=== PATIENT | female | born 1965 | race Caucasian/White ===

== ENCOUNTER 2016-10-24 13:31 | Emergency (ER) | payer MEDICAID ==
[~2016-10-24] VITALS: Ht 160 cm; Wt 113.4 kg
[2016-10-24] MEDS ORDERED: CITALOPRAM HBR40 MG PO (13:57)
[2016-10-24] MEDS ORDERED: NORTRIPTYLINE H50 MG PO (13:57)
[2016-10-24] MEDS ORDERED: OMEPRAZOLE20 M1 PO (13:58)
[2016-10-24] MEDS ORDERED: GABAPENTIN100 MG PO (13:58)
[2016-10-24] MEDS ORDERED: CORTIZONE-10 1%28 GM TOP (15:31)
[2016-10-24] MEDS ORDERED: PYRIDIUM200 MG PO (15:31)
[2016-10-24] MEDS ORDERED: LOTRISONE CREAM15 GM TOP (15:31)
== END 2016-10-24 15:57 | disposition home or self-care (01) ==
LOC: ED 13:31
PROC: 4A0D7LZ Measurement of Urinary Volume, Via Natural or Artificial Opening (ICD-10-PCS; principal; 2016-10-24)
DX: B37.2 Candidiasis of skin and nail (principal); R30.0 Dysuria; Z90.49 Acquired absence of other specified parts of digestive tract; Z90.710 Acquired absence of both cervix and uterus; Z88.2 Allergy status to sulfonamides; Z79.899 Other long term (current) drug therapy; Z91.030 Bee allergy status; Z91.018 Allergy to other foods
CPT/HCPCS: 51798; 81001; 99284

== ENCOUNTER 2024-04-16 12:27 | Emergency (ER) | payer MEDICAID ==
[~2024-04-16] VITALS: Ht 160 cm; Wt 137.9 kg
[~2024-04-16 12:27] MED LIST: CITALOPRAM HBR40 MG PO; CORTIZONE-10 1%28 GM TOP; GABAPENTIN100 MG PO; LOTRISONE CREAM15 GM TOP; NORTRIPTYLINE H50 MG PO; OMEPRAZOLE20 M1 PO; PYRIDIUM200 MG PO
--- OUTSIDE RECORDS SUMMARY | 2024-04-16 12:29 | XMS ---
PreManage Notification: MIYA VILLASENOR Security Medicare Sales Executive Events No recent Security Events currently on file CRITERIA MET - 6 ED Visits in 6 Months - [facility] - 2 Visits in 30 Days - [facility] - 3 Facilities in 90 Days CARE PROVIDERS DOMINICK Nurse Practitioner: Family Kenn DUNBAR PHONE: [phone] [facility] Current PHONE: Unknown JES SHORT Nurse Practitioner Current PHONE: [phone] Kari Armenta Medicare Sales Executive/E Commerce Solution Architect Current PHONE: [phone] Cha has no Care Guidelines for this patient. Chele VISIT COUNT (12 MO.) 7 Kofi Varela 2 Aayushacy Prien 1 MIKE Munoz TOTAL 10 NOTE: Visits indicate total known visits. ED/UCC VISIT TRACKING (12 MO.) 04/16/2024 12:27 [facility] [place] TYPE: Emergency COMPLAINT: - LEG SWELLING 03/23/2024 18:33 [place] [facility] TYPE: Emergency DIAGNOSES: - Chest pain, unspecified - Shortness of breath - CP 02/29/2024 22:03 [place] [facility] TYPE: Emergency DIAGNOSES: - Chest pain, unspecified - Other chest pain - Other specified postprocedural states - CP 01/30/2024 22:[facility] DIAGNOSES: - Palpitations - Chest Pain [facility]06[facility]2024 20[facility] DIAGNOSES: - Bradycardia, unspecified - Chest pain, unspecified - Chest Pain 12/23/2023 18:47 Kofi Maeh TYPE: Emergency DIAGNOSES: - Chest pain, unspecified - Fibromyalgia - Gastro-esophageal reflux disease without esophagitis - chest pressure 09/26/2023 20:[address] [facility] TYPE: Emergency DIAGNOSES: - Chondrocostal junction syndrome [Tietze] - Chest Pain 09/15/2023 21:[address] [facility] TYPE: Emergency DIAGNOSES: - Cellulitis of left lower limb - Abscess 08/01/2023 22:04 Kofi Maeh TYPE: Emergency DIAGNOSES: - Other chest pain - Chest Pain 05/03/2023 17:[address] [facility] TYPE: Emergency DIAGNOSES: - Chest pain, unspecified - Chest Pain - chest pains INPATIENT VISIT TRACKING (12 MO.) 01/07/2024 05:02 [facility] TYPE: Cardiology DIAGNOSES: - Bradycardia, unspecified - Fibromyalgia - Paroxysmal atrial fibrillation - Personal history of Methicillin resistant Staphylococcus aureus infection - Personal history of transient ischemic attack (TIA), and cerebral infarction without residual deficits - Presence of other cardiac implants and grafts - Symptomatic bradycardia [id number]
[2024-04-16] MEDS ORDERED: TRAZODONE HCL50 MG PO (12:47)
[2024-04-16] MEDS ORDERED: VAZALORE81 MG PO (12:47)
[2024-04-16] MEDS ORDERED: ELIQUIS2.5 MG PO (12:47)
[2024-04-16 13:32] LABS: BASOPHILS 0.6 % (0-2); EOSINOPHILS 1.1 % (0-6); HEMATOCRIT 40.9 % (35.0-50.0); HEMOGLOBIN 13.9 g/dL (12.0-18.0); LYMPHOCYTES 20.1 % (24-44); MCH 29.3 (27-36); MCHC 34.1 g/dl (30-36); MCV 86.1 fl (81-99); MONOCYTES 6.5 % (0-12); NEUTROPHILS 71.7 % (39-80); PLATELET COUNT 271 K/uL (140-440); RBC 4.75 M/ul (4.3-5.7); RDW 14.1 (10.5-15.0)
[2024-04-16 13:59] LABS: ALBUMIN 3.5 g/dL (3.4-5.0); ALBUMIN/GLOBULIN RATIO 0.88 (1.1-2.4); ANION GAP 13.2 (7-21); BILIRUBIN, TOTAL 0.6 ng/dL (0.2-1.0); BUN/CREATININE RATIO 16.86 (6.0-28.6); CALCIUM 9.6 mg/dL (8.5-10.1); CREATININE, SERUM 0.83 mg/dL (0.55-1.02); POTASSIUM 4.2 mmol/L (3.5-5.1); PROTEIN, TOTAL 7.5 g/dL (6.4-8.2)
[2024-04-16] MEDS ORDERED: LASIX20 MG PO (14:58)
[2024-04-16] MEDS ORDERED: K-TAB ER20 MEQ PO (14:58)
[2024-04-16 15:02] VITALS: BP 121/81
== END 2024-04-16 15:03 | disposition home or self-care (01) ==
LOC: ED 12:27
PROVIDERS: Emergency Medicine
DX: R60.0 Localized edema (principal); I25.2 Old myocardial infarction; I25.10 Atherosclerotic heart disease of native coronary artery without angina pectoris; I48.91 Unspecified atrial fibrillation; Z86.73 Personal history of transient ischemic attack (TIA), and cerebral infarction without residual deficits; Z88.2 Allergy status to sulfonamides; Z91.030 Bee allergy status; Z91.041 Radiographic dye allergy status; Z91.018 Allergy to other foods; Z79.01 Long term (current) use of anticoagulants; Z79.82 Long term (current) use of aspirin; Z79.899 Other long term (current) drug therapy
CPT/HCPCS: 36415; 80053; 83880; 85025; 99284

== ENCOUNTER 2024-04-21 21:16 | Emergency (ER) | payer MEDICAID ==
[~2024-04-21] VITALS: Ht 160 cm; Wt 139.7 kg
[~2024-04-21 21:16] MED LIST changes: +ELIQUIS2.5 MG PO; +K-TAB ER20 MEQ PO; +LASIX20 MG PO; +TRAZODONE HCL50 MG PO; +VAZALORE81 MG PO
--- OUTSIDE RECORDS SUMMARY | 2024-04-21 21:22 | XMS ---
PreManage Notification: MIYA VILLASENOR Security Therapist Respiratory Events No recent Security Events currently on file CRITERIA MET - 6 ED Visits in 6 Months - [facility] - 2 Visits in 30 Days - [facility] - 3 Facilities in 90 Days CARE PROVIDERS DOMINICK Nurse Practitioner: Family Kenn DUNBAR PHONE: [phone] [facility] Current PHONE: Unknown JES SHORT Nurse Practitioner Current PHONE: [phone] Kari Armenta Automotive Product Specialist/Hat Former Current PHONE: [phone] Cha has no Care Guidelines for this patient. Chele VISIT COUNT (12 MO.) 7 Kofi Mckeonelah 2 MIKE Looneymichael [place] TOTAL 11 NOTE: Visits indicate total known visits. ED/UCC VISIT TRACKING (12 MO.) 04/21/2024 21:16 [facility] [place] TYPE: Emergency COMPLAINT: - CHEST PAIN 04/16/2024 12:27 [facility] [place] TYPE: Emergency COMPLAINT: - LEG SWELLING DIAGNOSES: - Allergy status to sulfonamides - Allergy to other foods - Atherosclerotic heart disease of [place] coronary artery without angina pectoris - Bee allergy status - Localized edema - manager intermediate (current) use of anticoagulants - [facility] (current) use of aspirin - Old myocardial infarction - Other halfway (current) drug therapy - Personal history of transient ischemic attack (TIA), and cerebral infarction without residual deficits - Radiographic dye allergy status - Unspecified atrial fibrillation 03/23/2024 18:33 [place] [facility] TYPE: Emergency DIAGNOSES: - Chest pain, unspecified - Shortness of breath - CP 02/29/2024 22:03 [place] [facility] TYPE: Emergency DIAGNOSES: - Chest pain, unspecified - Other chest pain - Other specified postprocedural states - CP 01/30/2024 22:51 Kofi Villagomez TYPE: Emergency DIAGNOSES: - Palpitations - Chest Pain 01/06/2024 20:52 Kofi Villagomez TYPE: Emergency DIAGNOSES: - Bradycardia, unspecified - Chest pain, unspecified - Chest Pain 12/23/2023 18:[address] [facility] TYPE: Emergency DIAGNOSES: - Chest pain, unspecified - Fibromyalgia - Gastro-esophageal reflux disease without esophagitis - chest pressure 09/26/2023 20:[address] [facility] TYPE: Emergency DIAGNOSES: - Chondrocostal junction syndrome [Tietze] - Chest Pain 09/15/2023 21:[address] [facility] TYPE: Emergency DIAGNOSES: - Cellulitis of left lower limb - Abscess 08/01/2023 22:[address] [facility] TYPE: Emergency DIAGNOSES: - Other chest pain - Chest Pain 05/03/2023 17:[address] [facility] TYPE: Emergency DIAGNOSES: - Chest pain, unspecified - Chest Pain - chest pains INPATIENT VISIT TRACKING (12 MO.) 01/07/2024 05:02 [facility] TYPE: Cardiology DIAGNOSES: - Bradycardia, unspecified - Fibromyalgia - Paroxysmal atrial fibrillation - Personal history of Methicillin resistant Staphylococcus aureus infection - Personal history of transient ischemic attack (TIA), and cerebral infarction without residual deficits - Presence of other cardiac implants and grafts - Symptomatic bradycardia [email or web address]
[2024-04-21] MEDS ORDERED: DULOXETINE HCL60 MG PO (21:24)
[2024-04-21 21:28] LABS: BASOPHILS 0.8 % (0-2); HEMOGLOBIN 14.2 g/dL (12.0-18.0); LYMPHOCYTES 14.8 % (24-44); MCH 28.8 (27-36); MCV 87.2 fl (81-99); MONOCYTES 7.1 % (0-12); NEUTROPHILS 76.3 % (39-80); PLATELET COUNT 299 K/uL (140-440); RBC 4.93 M/ul (4.3-5.7); RDW 14.2 (10.5-15.0)
[2024-04-21] MEDS ORDERED: ASPIRIN 81 MG CHEW PO ONE (21:30)
[2024-04-21 21:43] LABS: INR 1.03 (0.80-1.30); PROTIME 13.4 Sec (11.2-14.2)
[2024-04-21 21:47] LABS: ALBUMIN 3.8 g/dL (3.4-5.0); ALKALINE PHOSPHATASE 113 U/L (46-116); ALT (SGPT) 67 U/L (14-59); ANION GAP 11.7 (7-21); AST (SGOT) 35 U/L (15-37); BILIRUBIN, TOTAL 0.6 ng/dL (0.2-1.0); CALCIUM 9.7 mg/dL (8.5-10.1); CARBON DIOXIDE 32 mmol/L (21-32); CHLORIDE 100 mmol/L (98-107); CREATININE, SERUM 0.97 mg/dL (0.55-1.02); GLOMERULAR FILTRATION RATE,EST 67 mL/min (>60); MAGNESIUM 1.8 mg/dL (1.8-2.4); POTASSIUM 3.7 mmol/L (3.5-5.1); UREA NITROGEN 13 mg/dL (7-18)
[2024-04-21] MEDS ORDERED: DEXAMETHASONE SOD PHOS 10 MG/ML VIAL IV ONE (22:45)
[2024-04-21 23:17] VITALS: BP 119/68
--- NOTE | 2024-04-24 10:15 | EKG ---
[facility] [address] [place] [address] Signed Sinus rhythm with premature supraventricular complexes [possibly but lots of artifact] Cannot rule out Anterior infarct , age undetermined Abnormal ECG No previous ECGs available Confirmed by Kalin Ramirez DO ([id number]) on 04/24/2024 10:15:11 AM Electronically Signed By: KALIN RAMIREZ DO 04/24/24 1015 PATIENT NAME: MIYA VILLASENOR JO Electrocardiogram DATE OF : 61 PHYSICIAN: KALIN RAMIREZ DO REPORT #: [id number] REPORT IS CONFIDENTIAL AND NOT TO BE RELEASED WITHOUT AUTHORIZATION
== END 2024-04-21 23:17 | disposition home or self-care (01) ==
LOC: ED 21:16
PROVIDERS: Internal Medicine
DX: R07.1 Chest pain on breathing (principal); I25.10 Atherosclerotic heart disease of native coronary artery without angina pectoris; I48.91 Unspecified atrial fibrillation; I25.2 Old myocardial infarction; Z91.030 Bee allergy status; Z91.041 Radiographic dye allergy status; Z91.018 Allergy to other foods; Z88.2 Allergy status to sulfonamides; Z79.899 Other long term (current) drug therapy; Z79.01 Long term (current) use of anticoagulants
CPT/HCPCS: 36415; 71045; 80053; 83735; 84484; 85025; 85379; 85610; 85730; 93005; 93010; 96374; 99285-25; A9270; J1100

== ENCOUNTER 2024-04-23 10:21 | Emergency (ER) | payer MEDICAID ==
[~2024-04-23] VITALS: Ht 160 cm; Wt 139.3 kg
[~2024-04-23 10:21] MED LIST changes: +DULOXETINE HCL60 MG PO
--- OUTSIDE RECORDS SUMMARY | 2024-04-23 10:28 | XMS ---
PreManage Notification: MIYA VILLASENOR Security Interactive Media Project Manager Events No recent Security Events currently on file CRITERIA MET - 6 ED Visits in 6 Months - [facility] - 2 Visits in 30 Days - [facility] - 3 Facilities in 90 Days CARE PROVIDERS DOMINICK Nurse Practitioner: Family Kenn DUNBAR PHONE: [phone] [facility] Current PHONE: Unknown JES SHORT Nurse Practitioner Current PHONE: [phone] Kari Armenta Warehouse Stocker/Fibre [employer]ic Cable Splicer Current PHONE: [phone] Cha has no Care Guidelines for this patient. Chele VISIT COUNT (12 MO.) 7 oKfi Mckeonelah 3 MIKE Looneymichael [place] TOTAL 12 NOTE: Visits indicate total known visits. ED/UCC VISIT TRACKING (12 MO.) 04/23/2024 10:21 [facility] [place] TYPE: Emergency COMPLAINT: - NOSE BLEED 04/21/2024 21:16 [facility] [place] TYPE: Emergency COMPLAINT: - CHEST PAIN DIAGNOSES: - Allergy status to sulfonamides - Allergy to other foods - Atherosclerotic heart disease of [place] coronary artery without angina pectoris - Bee allergy status - Chest pain on breathing - Chest pain, unspecified - manager terminal (current) use of anticoagulants - Old myocardial infarction - Other senior living (current) drug therapy - Radiographic dye allergy status - Unspecified atrial fibrillation 04/16/2024 12:27 MIKE [place] TYPE: Emergency COMPLAINT: - LEG SWELLING DIAGNOSES: - Allergy status to sulfonamides - Allergy to other foods - Atherosclerotic heart disease of [place] coronary artery without angina pectoris - Bee allergy status - Localized edema - manager terminal (current) use of anticoagulants - correction (current) use of aspirin - Old myocardial infarction - Other ad terminal makeup operator (current) drug therapy - Personal history of transient ischemic attack (TIA), and cerebral infarction without residual deficits - Radiographic dye allergy status - Unspecified atrial fibrillation 03/23/2024 18[facility] [facility] DIAGNOSES: - Chest pain, unspecified - Shortness of breath - CP 02/29/2024 22:03 [place] [place] [facility] TYPE: Emergency DIAGNOSES: - Chest pain, unspecified - Other chest pain - Other specified postprocedural states - CP 01/30/2024 22:51 [facility] TYPE: Emergency DIAGNOSES: - Palpitations - Chest Pain 01/06/2024 20:52 [place] [facility] [place] [facility] TYPE: Emergency DIAGNOSES: - Bradycardia, unspecified - Chest pain, unspecified - Chest Pain 12/23/2023 18:47 [place] [facility] [place] TYPE: Emergency DIAGNOSES: - Chest pain, unspecified - Fibromyalgia - Gastro-esophageal reflux disease without esophagitis - chest pressure 09/26/2023 20:[address] [facility] TYPE: Emergency DIAGNOSES: - Chondrocostal junction syndrome [Tietze] - Chest Pain 09/15/2023 21:34 [place] [facility] TYPE: Emergency DIAGNOSES: - Cellulitis of left lower limb - Abscess 08/01/2023 22:04 [facility] TYPE: Emergency DIAGNOSES: - Other chest pain - Chest Pain 05/03/2023 17:[address] [facility] [place] [facility] DIAGNOSES: - Chest pain, unspecified - Chest Pain - chest pains INPATIENT VISIT TRACKING (12 MO.) 01/07/2024 05:02 [facility] TYPE: Cardiology DIAGNOSES: - Bradycardia, unspecified - Fibromyalgia - Paroxysmal atrial fibrillation - Personal history of Methicillin resistant Staphylococcus aureus infection - Personal history of transient ischemic attack (TIA), and cerebral infarction without residual deficits - Presence of other cardiac implants and grafts - Symptomatic bradycardia [id number]
[2024-04-23] MEDS ORDERED: OXYMETAZOLINE HCL 30 ML BTL NAS ONE (11:15)
[2024-04-23 11:28] LABS: BASOPHILS 0.5 % (0-2); EOSINOPHILS 0.8 % (0-6); HEMATOCRIT 40.9 % (35.0-50.0); HEMOGLOBIN 13.5 g/dL (12.0-18.0); LYMPHOCYTES 24.1 % (24-44); MCH 28.8 (27-36); MCV 87.4 fl (81-99); MONOCYTES 5.7 % (0-12); NEUTROPHILS 68.9 % (39-80); PLATELET COUNT 269 K/uL (140-440); RBC 4.68 M/ul (4.3-5.7); RDW 14.6 (10.5-15.0)
[2024-04-23 11:40] LABS: ALBUMIN 3.1 g/dL (3.4-5.0); ALBUMIN/GLOBULIN RATIO 0.78 (1.1-2.4); ANION GAP 8.3 (7-21); BILIRUBIN, TOTAL 0.4 ng/dL (0.2-1.0); BUN/CREATININE RATIO 15.95 (6.0-28.6); CALCIUM 9.1 mg/dL (8.5-10.1); CREATININE, SERUM 0.94 mg/dL (0.55-1.02); POTASSIUM 3.3 mmol/L (3.5-5.1); PROTEIN, TOTAL 7.1 g/dL (6.4-8.2)
[2024-04-23 12:25] VITALS: BP 107/73
== END 2024-04-23 12:26 | disposition home or self-care (01) ==
LOC: ED 10:21
PROVIDERS: Emergency Medicine
DX: R04.0 Epistaxis (principal); I48.91 Unspecified atrial fibrillation; I25.2 Old myocardial infarction; Z86.73 Personal history of transient ischemic attack (TIA), and cerebral infarction without residual deficits; Z88.2 Allergy status to sulfonamides; Z91.041 Radiographic dye allergy status; Z91.030 Bee allergy status; Z91.018 Allergy to other foods; Z79.01 Long term (current) use of anticoagulants; Z79.82 Long term (current) use of aspirin; Z79.899 Other long term (current) drug therapy
CPT/HCPCS: 30901; 36415; 80053; 85025; 99283